=== PATIENT | male | born 1985 ===

== ENCOUNTER 2019-05-30 18:25 | Emergency (ER) | payer MEDICAID | END 2019-05-30 19:43 | disposition left against medical advice (07) | LOC: ER 18:25 | DX: S01.81XA Laceration without foreign body of other part of head, initial encounter (principal); Z53.21 Procedure and treatment not carried out due to patient leaving prior to being seen by health care provider; Y04.2XXA Assault by strike against or bumped into by another person, initial encounter; Y93.89 Activity, other specified; Y92.89 Other specified places as the place of occurrence of the external cause; Y99.8 Other external cause status ==